=== PATIENT | female | born 1950 | race Caucasian/White ===

== ENCOUNTER 2020-06-05 09:46 | Day surgery (SDC) | payer OTHER ==
[~2020-06-05 09:46] MED LIST: CYMBALTA60 MG PO; DIOVAN320 MG PO; DIOVAN40 MG; DITROPAN XL5 MG PO; GABAPENTIN300 MG PO; NORVASC2.5 M1; PROTONIX40 MG PO; SYNTHROID50 MCG; ZANTAC300 MG PO
== END 2020-06-05 18:20 | disposition home or self-care (01) ==
LOC: CIR.AMB 09:46
PROVIDERS: ATTEND Colon & Rectal Surgery
DX: R15.9 Full incontinence of feces (principal); Z20.828 Contact with and (suspected) exposure to other viral communicable diseases
CPT/HCPCS: 64590; 95971; L8679